=== PATIENT | female | born 1965 | race Caucasian/White ===

== ENCOUNTER → 2016-05-16 | Outpatient (CLI) | payer MEDICARE, MEDICAID ==
[~2016-05-16] MED LIST: AC500T PO; ACIDOPHILUS100 MG PO; CA C1TAB80 PO; CALC1TAB13 PO; DCS100C PO; DILANTIN; LACT1TAB10 PO; LOPE1TAB13 PO; LORA10CA PO; MAGN-47 PO; METR500T PO; PHEN50TA PO; POLY17PO23 PO; SMXTMP10ML PO
--- OUTSIDE RECORDS SUMMARY | 2016-05-16 09:50 | XMS REPORT | Continuity of Care Document ---
Author Author [facility] Organization [facility] Address Unknown Phone Unavailable Care Team Providers Care Cutting Inspector Name Role Phone RIDGE VARMA DO PCP Insurance Providers Payer Name Policy Number Subscriber Name Relationship [employer] [id number] Asia Anderson 17 Self / Same As Patient Medicaid [place] [id number] Asia Anderson 17 Self / Same As Patient Advance Directives Directive Response Recorded Date/Time Advance Directives No 05/21/14 7:52pm Organ Donor No 11/17/11 6:50am Resuscitation Status Full Code 05/21/14 7:52pm Problems Medical Problems Problem Onset Date Status Laceration of face Unknown Active Medications Medication Dose Route Sig Days/Qty Instructions Order Date Discontinued Date Status [Dilantin] 11/17/11 11/17/11 Discontinued Polyethylene Glycol 17 Gm PO EVERY OTHER DAY 11/17/11 Active Docusate Sodium 100 Mg PO DAILY 11/17/11 Active Lactobacillus Acidophilus 1 Each PO TWICE A DAY 11/17/11 Active Calcium Carbonate 1 Tab.chew PO THREE TIMES A DAY 11/17/11 Active Magnesium Hydroxide 30 Ml PO DAILY PRN 11/17/11 Active Acetaminophen 500 Mg PO EVERY 6 HOURS PRN 11/17/11 Active Phenytoin 150 Mg PO TWICE A DAY 11/17/11 Active Trimethoprim/Sulfamethoxazole (Bactrim 200 Mg-40 Mg/5 Ml) 2.5 Tsp PO TWICE A DAY 250 Qty FOR INFECTION 11/17/11 Active Metronidazole 1 Each PO THREE TIMES A DAY 30 Qty 11/24/11 Active Social History Social History Problem Response Recorded Date/Time Alcohol Use Denies Use 05/21/2014 7:52pm Recreational Drug Use No 05/21/2014 7:52pm Recent Foreign Travel No 05/21/2014 7:52pm Smoking Status Never a Smoker 05/21/2014 7:52pm Query Response Start Date Stop Date Smoking Status Never a Smoker Hospital Discharge Instructions No hospital discharge instructions. Plan of Care No plan of care. Functional Status No functional status results. Allergies, Adverse Reactions, Alerts Allergen Type Severity Reaction Status Last Updated Phenobarbital Allergy Mild Active 09/13/07 Immunizations Name Given Type Date of Influenza Vaccine 01/24/14 Historical Vital Signs Acute Vital Signs Vital Response Date/Time Temperature (Fahrenheit) 98.1 degrees F (97.6 - 99.5) Temperature (Calculated Celsius) 36.87051 degrees C (36.4 - 37.5) Pulse Rate (adult) 89 bpm (60 - 90) Respiratory Rate 16 bpm (12 - 24) O2 Sat by Pulse Oximetry 99 % (88 - 100) Blood Pressure 115/84 mm Hg Pain Pain Intensity 0 Height (Feet) 5 feet Height (Inches) 4 inches Height (Calculated Centimeters) 162.046445 cm Weight (Pounds) 120 pounds Weight (Calculated Grams) 61160.123 gm Weight (Calculated Kilograms) 54.430014 kilograms Calculated BMI 20.60 Results No known relevant diagnostic tests, laboratory data and/or discharge summary. Procedures No known history of procedures. Encounters Encounter Location Date/Time Departed Emergency Room [facility] 05/21/14 7:22pm Recent Diagnosis
--- NOTE | 2016-05-16 10:16 | Diagnostic Imaging Report ---
EXAMINATION: Left lower extremity duplex venous ultrasound. TECHNIQUE: DVT protocol. Multiple sonographic images with color Doppler and waveform interrogation were performed of the left lower extremity veins with compression and augmentation maneuvers. INDICATION: Left leg swelling and discoloration. FINDINGS: The left lower extremity veins from the groin to below the knee veins were examined with normal color-flow, compressibility and waveform demonstrated. IMPRESSION: No evidence of DVT in the left lower extremity. Dictated by: Dictated on workstation # [id number]
== END ==
LOC: RAD 09:46
PROVIDERS: ATTEND Family Medicine
DX: M79.89 Other specified soft tissue disorders (principal)

== ENCOUNTER → 2016-09-01 | Outpatient (CLI) | payer MEDICARE, MEDICAID ==
--- NOTE | 2016-09-01 16:01 | Diagnostic Imaging Report ---
INDICATION: Bilateral foot pain. AP, oblique, and lateral views of both feet are obtained. FINDINGS: No fracture or acute bony abnormality is seen. Joint spaces appear unremarkable. IMPRESSION: Negative bilateral feet. Dictated by: Dictated on workstation # [id number]
== END ==
LOC: RAD 14:39
PROVIDERS: ATTEND Family Medicine
DX: M79.671 Pain in right foot (principal); M79.672 Pain in left foot

== ENCOUNTER → 2016-09-02 | Outpatient (CLI) | payer MEDICARE, MEDICAID ==
--- NOTE | 2016-09-02 12:17 | Diagnostic Imaging Report ---
EXAMINATION: AP view of the pelvis and bilateral hip radiographs. INDICATION: Fall. FINDINGS: No fracture or dislocation is seen. 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 Correlate clinically. Moderate amount of fecal material is seen in the right colon. There is a sclerotic focus with circumscribed margins abutting the endosteum of the cortex and the proximal left femur shaft, measuring 1.2 cm, presumably related to a bony island. IMPRESSION: No fracture seen. Dictated by: Dictated on workstation # [id number]
--- NOTE | 2016-09-02 12:21 | Diagnostic Imaging Report ---
EXAMINATION: Three views of the nasal bones. INDICATION: Fall. FINDINGS: No fracture, dislocation or radiopaque foreign body is seen. There is slight opacity projecting over the right maxillary sinus which may relate to mucosal thickening or mucous retention cyst. If the site of impact is in the right maxillary region, then maxillofacial CT for better evaluation is suggested. IMPRESSION: Mild opacity in the right maxillary sinus could be related to sinus disease. If this is the location of injury and tenderness, then evaluation with maxillofacial CT to rule out maxillary sinus injury is recommended. Dictated by: Dictated on workstation # [id number]
== END ==
LOC: RAD 10:57
PROVIDERS: ATTEND Family Medicine
DX: M25.559 Pain in unspecified hip (principal); J34.89 Other specified disorders of nose and nasal sinuses; W19.XXXA Unspecified fall, initial encounter; Y99.8 Other external cause status
CPT/HCPCS: 70160; 73523

== ENCOUNTER 2016-09-05 12:45 | Emergency (ER) | payer MEDICARE, MEDICAID ==
[~2016-09-05] VITALS: Ht 165.1 cm; Wt 50.8 kg
--- NOTE | 2016-09-05 13:25 | ED General ---
General Chief Complaint: General Problems/Pain Stated Complaint: WEAKNESS,BODY ACHES Nursing Triage Note: PT BROUGHT TO ED BY STAFF, PT IS MR AND HAS STOPPED WALKING AND IS UNABLE TO FEED SELF AT THIS X, CO OF PAIN FEET HANDS AND ARMS, PT HAS SEEN DR VARMA 3 X'S THIS WEEK FOR XRAYS AND LABS W NO RESOLUTION OF SX. PT IS ALERT AND WANTING TO GO HOME. 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 The patient has been to see her primary care doctor 3 times this week for evaluation of pains. Variety of apparently unremarkable laboratory examinations and lower extremity x-rays have been done. Patient is under care of Dr. Varma. The patient has been apparently unable to weight-bear due to the discomfort. On questioning the patient she is unable to localize her discomfort. Patient's caregiver is now noted a resting tachycardia. Allergies and Home Medications Allergies Coded Allergies: phenobarbital (Verified Allergy, Mild, 09/13/07) Home Medications Acetaminophen 500 Mg Tablet, 500 MG PO Q6H PRN, (Reported) Ca Carbonate/Vitamin D3/Vit K 1 Each Tab.chew, 1 EACH PO TID, (Reported) Calcium/Fa/Multivits-Min 1 Tab.chew Tab.chew, 1 TAB.CHEW PO TID, (Reported) Docusate Sodium 100 Mg Capsule, 100 MG PO DAILY, (Reported) Lactobacillus Acidophilus 1 Each Tablet, 1 EACH PO BID, (Reported) Lactobacillus Acidophilus 100 Mg Capsule, 100 MG PO DAILY, (Reported) Loperamide Hcl/Simethicone 1 Each Tablet, 1 EACH PO PRN PRN for DIARRHEA, ( Reported) Loratadine 10 Mg Capsule, 10 MG PO DAILY, (Reported) Magnesium Hydroxide 400 Mg/5 Ml Oral.susp, 30 ML PO DAILY PRN, (Reported) Phenytoin 50 Mg Tab.chew, 150 MG PO BID, (Reported) Polyethylene Glycol 17 Gm Pack, 17 GM PO EVERY OTHER DAY, (Reported) Constitutional: No chills, No fever EENTM: No eye pain Respiratory: No cough, No short of breath Gastrointestinal: No RUQ Genitourinary: No dysuria, No frequency Musculoskeletal: No back pain Skin: No change in color Psychiatric/Neurological: Denies Anxiety, Denies Headache Hematologic/Lymphatic: No Symptoms Reported Immunological/Allergic: no symptoms reported Past Osllnlr-Eojhsj-Romeeb Hx Patient Social History Alcohol Use: Denies Use Recreational Drug Use: No Smoking Status: Never a Smoker Recent Foreign Travel: No Contact w/Someone Who Travel: No Recent Infectious Disease Expo: No Recent Hopitalizations: No Immunizations Up To Date Date of Influenza Vaccine: Jan 24, 2014 Seasonal Allergies Seasonal Allergies: No Respiratory Hx Respiratory Disorders: No Cardiovascular Hx Cardiac Disorders: No Cardiac Disorders: Hypertension Neurological Hx Neurological Disorders: Yes (convulsions, MR) Neurological Disorders: Seizure Disorder Gastrointestinal Hx Gastrointestinal Disorders: Yes Gastrointestinal Disorders: Chronic Constipation Musculoskeletal Hx Musculoskeletal Disorders: Yes Musculoskeletal Disorders: Arthritis Family Medical History Significant Family History: No Pertinent Family Hx Physical Exam Vital Signs Vital Sign - Last 12Hours 09/05/16 13:00 Temp 97.9 Pulse 123 Resp 18 B/P (MAP) 124/108 Pulse Ox 96 Capillary Refill : Less Than 3 Seconds General Appearance: No Apparent Distress, Cachetic Eyes: Bilateral Eye Normal Inspection HEENT: Normal ENT Inspection Neck: Normal Inspection Respiratory: Chest Non Tender, Lungs Clear, Normal Breath Sounds Cardiovascular: Regular Rate, Rhythm Gastrointestinal: Normal Bowel Sounds, No Organomegaly, No Pulsatile Mass Back: Normal Inspection, No CVA Tenderness Extremity: Normal Capillary Refill, Normal Inspection Neurologic/Psychiatric: Alert, Oriented x3 Skin: Normal Color, Warm/Dry Progress/Results/Core Measures Results/Orders Lab Results Laboratory Tests Test 09/05/16 13:30 09/05/16 15:50 Range/Units White Blood Count 8.5 4.3-11.0 10^3/uL Red Blood Count 4.30 L 4.35-5.85 10^6/uL Hemoglobin 13.6 11.5-16.0 G/DL Hematocrit 40 35-52 % Mean Corpuscular Volume 94 80-99 FL Mean Corpuscular Hemoglobin 32 25-34 PG Mean Corpuscular Hemoglobin Concent 34 32-36 G/DL Red Cell Distribution Width 12.4 10.0-14.5 % Platelet Count 44 L 130-400 10^3/uL Mean Platelet Volume 11.7 H 7.4-10.4 FL Neutrophils (%) (Auto) 73 42-75 % Lymphocytes (%) (Auto) 13 12-44 % Monocytes (%) (Auto) 10 0-12 % Eosinophils (%) (Auto) 3 0-10 % Basophils (%) (Auto) 0 0-10 % Neutrophils # (Auto) 6.2 1.8-7.8 X 10^3 Lymphocytes # (Auto) 1.1 1.0-4.0 X 10^3 Monocytes # (Auto) 0.9 0.0-1.0 X 10^3 Eosinophils # (Auto) 0.3 0.0-0.3 10^3/uL Basophils # (Auto) 0.0 0.0-0.1 10^3/uL Sodium Level 139 135-145 MMOL/L Potassium Level 4.0 3.6-5.0 MMOL/L Chloride Level 100 98-107 MMOL/L Carbon Dioxide Level 31 21-32 MMOL/L Anion Gap 8 5-14 MMOL/L Blood Urea Nitrogen 16 7-18 MG/DL Creatinine 0.71 0.60-1.30 MG/DL Estimat Glomerular Filtration Rate > 60 BUN/Creatinine Ratio 23 Glucose Level 200 H 70-105 MG/DL Calcium Level 9.7 8.5-10.1 MG/DL Total Bilirubin 0.3 0.1-1.0 MG/DL Aspartate Amino Transf (AST/SGOT) 23 5-34 U/L Alanine Aminotransferase (ALT/SGPT) 16 0-55 U/L Alkaline Phosphatase 105 40-136 U/L Total Protein 7.4 6.4-8.2 G/DL Albumin 4.1 3.2-4.5 G/DL Lipase 38 8-78 U/L Urine Color YELLOW Urine Clarity CLEAR Urine pH 8 5-9 Urine Specific [place] 1.010 L 1.016-1.022 Urine Protein 1+ H NEGATIVE Urine Glucose (UA) 2+ H NEGATIVE Urine Ketones NEGATIVE NEGATIVE Urine Nitrite NEGATIVE NEGATIVE Urine Bilirubin NEGATIVE NEGATIVE Urine Urobilinogen NORMAL NORMAL MG/DL Urine Leukocyte Esterase 1+ H NEGATIVE Urine RBC (Auto) 5+ H NEGATIVE Urine RBC 10-25 H /HPF Urine WBC 0-2 /HPF Urine Crystals PRESENT H /LPF Urine Amorphous Sediment FEW ANGELIC PHOSPHATE H /LPF Urine Bacteria NONE /HPF Urine Casts NONE /LPF Urine Mucus NEGATIVE /LPF Urine Culture Indicated NO My Orders Orders - HAYLEY HERMOSILLO MD Ct Abdomen/Pelvis W (09/05/16 13:17) Cbc With Automated Diff (09/05/16 13:17) Comprehensive Metabolic Panel (09/05/16 13:17) Lipase (09/05/16 13:17) Ua Culture If Indicated (09/05/16 13:17) Ns Iv 1000 Ml (Sodium Chloride 0.9%) (09/05/16 13:30) Fentanyl Injection (Sublimaze Injection (09/05/16 13:30) Chest 1 View, Ap/Pa Only (09/05/16 13:17) Iohexol Injection (Omnipaque 350 Mg/Ml 1 (09/05/16 13:30) Ns (Ivpb) (Sodium Chloride 0.9% Ivpb Bag (09/05/16 13:30) Medications Given in ED Current Medications Medications Dose Ordered Sig/Madeline Route Start Time Stop Time Status Last Admin Dose Admin Fentanyl Citrate 50 mcg ONCE ONCE IVP 09/05/16 13:30 09/05/16 13:31 DC 09/05/16 13:55 50 MCG Iohexol 100 ml ONCE ONCE IV 09/05/16 13:30 09/05/16 13:31 DC 09/05/16 14:51 100 ML Sodium Chloride 100 ml ONCE ONCE IV 09/05/16 13:30 09/05/16 13:31 DC 09/05/16 14:51 100 ML Vital Signs/I&O Vital Sign - Last 12Hours 09/05/16 13:00 Temp 97.9 Pulse 123 Resp 18 B/P (MAP) 124/108 Pulse Ox 96 Blood Pressure Mean: 113 Progress Note : Time: 16:25 Progress Note The patient's chest x-ray, CT of the abdomen and pelvis, CBC and urinalysis were all unremarkable other than evidence of microscopic blood (patient is on her period). Treatment course in emergency department consisted of 50 g of fentanyl in addition to IV fluids. The patient was markedly improved following this treatment. The patient's CT well and straight no evidence of pathology didn't demonstrate evidence of significant obstipation. Departure Impression Impression: Primary Impression: General medical exam Disposition: 01 HOME, SELF-CARE Condition: Improved Departure-Patient Inst. Decision time for Depature: 16:27 Referrals: RIDGE VARMA DO (PCP/Family) Primary Care Physician Patient Instructions: CHRONIC PAIN Add. Discharge Instructions: The patient and caregivers were asked to employed Tylenol for discomfort over the weekend. They were encouraged to use a fleets enema for the obstipation. They were invited to return to emergency department this weekend if the pain persisted or increased. There are S follow-up with their primary care physician , Dr. Varma, on Thursday. All discharge instructions reviewed with patient and /or family. Voiced understanding. HAYLEY HERMOSILLO MD September 05, 2016 13:25
[2016-09-05] MEDS ORDERED: NS IV 1000 ML 1,000 ML IV SCH (13:30)
[2016-09-05] MEDS ORDERED: fentaNYL INJECTION 100 MCG/2 ML AMP IVP ONE (13:30)
[2016-09-05] MEDS ORDERED: IOHEXOL 350 MG/ML 100 ML (OMNIPAQUE 350) VIAL IV ONE (13:30)
[2016-09-05] MEDS ORDERED: NS 100 ML (IVPB) BAG IV ONE (13:30)
[2016-09-05 13:59] LABS: ALANINE AMINOTRANSFERASE 16 U/L (0-55); ALBUMIN 4.1 G/DL (3.2-4.5); ANION GAP 8 MMOL/L (5-14); ASPARTATE AMINO TRANSFERASE 23 U/L (5-34); BILIRUBIN,TOTAL 0.3 MG/DL (0.1-1.0); BLOOD UREA NITROGEN 16 MG/DL (7-18); BUN/CREATININE RATIO 23; CALCIUM 9.7 MG/DL (8.5-10.1); CARBON DIOXIDE 31 MMOL/L (21-32); CHLORIDE 100 MMOL/L (98-107); CREATININE SERUM 0.71 MG/DL (0.60-1.30); GFR ESTIMATED > 60; GLUCOSE 200 MG/DL (70-105); LIPASE 38 U/L (8-78); SODIUM 139 MMOL/L (135-145); TOTAL PROTEIN 7.4 G/DL (6.4-8.2)
[2016-09-05 14:30] LABS: BASOPHILS % (AUTO) 0 % (0-10); EOSINOPHILS # (AUTO) 0.3 10^3/uL (0.0-0.3); EOSINOPHILS % (AUTO) 3 % (0-10); LYMPHOCYTES # (AUTO) 1.1 X 10^3 (1.0-4.0); LYMPHOCYTES % (AUTO) 13 % (12-44); MEAN CORPUSCULAR HEMOGLOBIN 32 PG (25-34); MEAN CORPUSCULAR HGB CONC 34 G/DL (32-36); MEAN CORPUSCULAR VOLUME 94 FL (80-99); MEAN PLATELET VOLUME 11.7 FL (7.4-10.4); MONOCYTES # (AUTO) 0.9 X 10^3 (0.0-1.0); MONOCYTES % (AUTO) 10 % (0-12); NEUTROPHILS # (AUTO) 6.2 X 10^3 (1.8-7.8); NEUTROPHILS % (AUTO) 73 % (42-75); PLATELET COUNT 44 10^3/uL (130-400); RED CELL DISTRIBUTION WIDTH 12.4 % (10.0-14.5); WHITE BLOOD COUNT 8.5 10^3/uL (4.3-11.0)
--- NOTE | 2016-09-05 14:58 | Diagnostic Imaging Report ---
PROCEDURE: CT abdomen and pelvis with contrast. TECHNIQUE: Multiple contiguous axial images were obtained through the abdomen and pelvis after administration of intravenous contrast. INDICATION: Weakness. COMPARISON: None. FINDINGS: Examination is limited by motion artifact. The lung bases are clear. The liver, gallbladder, pancreas, spleen, adrenals, right kidney, and collecting systems are unremarkable. Benign-appearing subcentimeter cyst in the left kidney. The appendix is not identified and may be surgically absent. No suspicious inflammatory findings in the region of the cecum. Large amount of stool throughout the colon and rectum. No free intraperitoneal air or fluid. No evidence of bowel obstruction. Small simple-appearing cystic structures in both adnexa, the largest measuring up to up to 1.8 cm on the left presumably represents ovarian cysts. No lymphadenopathy. No acute osseous findings. IMPRESSION: 1. No acute CT findings in the abdomen or pelvis. 2. Large amount of stool in the colon and rectum may represent a degree of constipation. 3. Small cystic structures within both adnexa likely represent benign ovarian cysts. This could be further evaluated with pelvic ultrasound if clinically warranted. Dictated by: Dictated on workstation # [id number]
--- NOTE | 2016-09-05 14:59 | Diagnostic Imaging Report ---
INDICATION: Weakness and bodyaches. EXAMINATION: Portable chest at 2:32 PM. FINDINGS: The heart size and pulmonary vascularity are normal. The lungs are clear. There are no effusions or pneumothoraces. IMPRESSION: Negative chest. Dictated by: Dictated on workstation # [id number]
[2016-09-05 16:16] LABS: BILIRUBIN,URINE NEGATIVE (NEGATIVE); KETONES,URINE NEGATIVE (NEGATIVE); LEUKOCYTE ESTERASE ,URINE 1+ (NEGATIVE); NITRITE,URINE NEGATIVE (NEGATIVE); PH,URINE 8 (5-9); PROTEIN,URINE 1+ (NEGATIVE); UROBILINOGEN,URINE NORMAL (NORMAL)
[2016-09-05 16:17] LABS: WBC,URINE 0-2 /HPF
[2016-09-05 16:41] VITALS: BP 122/88
== END 2016-09-05 16:40 | disposition home or self-care (01) ==
LOC: EDUNIT# 12:45 → ER 12:48
DX: M79.1 Myalgia (principal); R53.1 Weakness; F79 Unspecified intellectual disabilities
CPT/HCPCS: 36415; 71010; 74177; 80053; 81000; 83690; 85025; 96361; 96374; 99282

== ENCOUNTER 2016-11-14 10:00 | Outpatient (RCR) | payer MEDICARE, MEDICAID | END 2016-11-14 10:36 | disposition home or self-care (01) | PROVIDERS: ATTEND Family Medicine | DX: R26.81 Unsteadiness on feet (principal) ==

== ENCOUNTER → 2017-04-02 | Outpatient (CLI) | payer MEDICARE, MEDICAID ==
--- NOTE | 2017-04-03 12:59 | Diagnostic Imaging Report ---
Bilateral screening mammogram 2D views with tomosynthesis. The current study was also evaluated with a Computer Aided Detection (CAD) system. INDICATION: Screening. No current complaints stated on the questionnaire. COMPARISON: 03/06/16. FINDINGS: The breasts are composed of extremely dense parenchyma which would decrease mammographic sensitivity. There is no definitive underlying mass or suspicious calcifications seen. Allowing for technique and positional differences, no suspicious change is seen. IMPRESSION: Dense breasts with no definite change. ACR BI-RADS Category 2: Benign findings. Result letter will be mailed to the patient. Note: At least 10% of breast cancer is not imaged by mammography. Dictated on workstation # [id number]
== END ==
LOC: RAD 11:14
PROVIDERS: ATTEND Family Medicine
DX: Z12.31 Encounter for screening mammogram for malignant neoplasm of breast (principal)

== ENCOUNTER → 2019-03-11 | Outpatient (CLI) | payer MEDICARE, MEDICAID ==
--- NOTE | 2019-03-11 12:58 | Diagnostic Imaging Report ---
CLINICAL INDICATION: Patient fell on face out of the wheelchair. EXAMS: 1: Axial Head CT without IV contrast. 2: Axial Maxillofacial CT scan without IV contrast with sagittal and coronal reformations. Auto Exposure Controls were utilized during the CT exam to meet ALARA standards for radiation dose reduction. COMPARISON: Head CT without contrast dated 11/17/2011. FINDINGS: Head CT: There is no evidence of acute cerebral infarct, intracranial hemorrhage, or gross mass effect. Stable diffuse brain parenchymal volume loss with parietal lobe affected the most. There is normal sy-white matter distinction. There is no significant midline shift or herniation. There is no evidence of hydrocephalus. The basal cisterns are unremarkable. Maxillofacial CT: There is motion artifact which greatly limits evaluation of the bilateral mandibular condyles and mandibular neck regions. Fractures in these regions are unable to be evaluated. It is noted that there is malalignment between the maxilla and mandible unknown if this is due to patient's positioning especially with the degree of motion artifact involving the mandibular condyles. Otherwise, there is no skull or maxillofacial fracture seen. There are stable chronic compressed deformity of the nasal bone anteriorly. There is mild mucosal thickening involving both maxillary sinus, ethmoid sinus and sphenoid sinus. There is a small area of extracranial soft tissue swelling and air likely related to laceration involving the right forehead region. There is no skull or maxillofacial fracture seen. There are hypertrophic cervical spine spurs which may be seen with DISH. IMPRESSION: 1.: Stable CT scan of brain with no evidence of acute intracranial process. There is no intracranial hemorrhage. 2: There is motion artifact greatly obscuring the mandibular condyles and mandibular neck regions. Evaluation for fracture in this region is greatly limited. There is also noted malalignment in the maxilla and mandible and unknown if this is related to patient's positioning especially given significant motion artifact. 3: There is no skull or maxillofacial fracture seen. There is a chronic bony deformity compressed appearance of the nasal bone. 4: There is small amount of extrarenal soft tissue swelling in the right forehead region and subcutaneous air which may be related to laceration. 5: Otherwise, there is no skull or maxillofacial fracture seen. Dictated by: Dictated on workstation # [id number]
== END ==
LOC: RAD 11:41
PROVIDERS: ATTEND Family Medicine
DX: M95.0 Acquired deformity of nose (principal); R22.0 Localized swelling, mass and lump, head; V00.811A Fall from moving wheelchair (powered), initial encounter
CPT/HCPCS: 70450; 70486

== ENCOUNTER → 2020-06-26 | Outpatient (CLI) | payer MEDICARE, MEDICAID | LOC: RAD 13:53 | PROVIDERS: ATTEND Family Medicine | DX: Z12.31 Encounter for screening mammogram for malignant neoplasm of breast (principal) ==

== ENCOUNTER → 2021-12-04 | Outpatient (CLI) | payer MEDICARE, MEDICAID | LOC: RAD 12:30 | PROVIDERS: ATTEND Family Medicine | DX: M25.551 Pain in right hip (principal); W19.XXXA Unspecified fall, initial encounter ==